=== PATIENT | female | born 1960 | race Caucasian/White ===

== ENCOUNTER → 2016-11-14 | Outpatient (CLI) | payer MEDICARE, OTHER ==
--- NOTE | 2016-11-14 16:32 | BD ---
EXAMINATION TYPE: MG DEXA axial skeleton. DATE OF EXAM: 11/14/2016 COMPARISON: NONE CLINICAL HISTORY: Height: 5 FT 1/4 IN Weight: 200 FRAX RISK QUESTIONS: Alcohol (3 or more units per day): NO Family History (Parent hip fracture): NO Glucocorticoids (More than 3mos): NO (Ex: prednisone, prednisolone, methylprednisolone, dexamethasone, and hydrocortisone). History of Fracture in Adulthood: YES Secondary Osteoporosis: 1. Type 1 Diabetes: NO 2. Hyperthyroidism: NO 3. Menopause before 45: NO 4. Malnutrition: NO 5. Chronic liver disease: NO Rheumatoid Arthritis: YES Current Tobacco Use: NO RISK FACTORS HISTORY OF: History of Wrist Fracture: UNSURE WHICH ONE When: Active: YES Postmenopausal woman: AGE 50 MEDICATIONS: Additional Medications: BLOOD PRESSURE, CHOLESTEROL, RESTLESS LEG SYNDROME MEDS, OMEPRAZOLE, NORCO, M OTRIN Additional History: EXAM MEASUREMENTS: Bone mineral densitometry was performed using the [employer] System. Bone mineral density as measured about the Lumbar spine is: ----- L1-L4(G/cm2): 0.902 T Score Values are as follows: ----- L2: -2.6 ----- L3: -2.1 ----- L4: -2.8 ----- L1-L4: -2.3 BASELINE Bone mineral density about the R hip (g/cm2): 0.828 Bone mineral density about the L hip (g/cm2): 0.786 T Score values are as follows: -----R Neck: -1.8 -----L Neck: -1.5 -----R Total: -1.4 -----L Total: -0.6 BASELINE IMPRESSION: OSTEOPOROSIS NOTE: T-SCORE=SD OF THE YOUNG ADULT MEAN.
--- NOTE | 2016-11-15 14:28 | MM ---
Reason for exam: screening (asymptomatic). Last mammogram was performed 1 year and 1 month ago. History: Patient is postmenopausal and is nulliparous. Physical Findings: A clinical breast exam by your physician is recommended on an annual basis and results should be correlated with mammographic findings. MG Screening Mammo w CAD Bilateral CC and MLO view(s) were taken. Prior study comparison: October 29, 2015, mammogram, performed at [facility]. December 18, 2013, mammogram, performed at [facility]. The breast tissue is almost entirely fat. There is no discrete abnormality. No significant changes when compared with prior studies. ASSESSMENT: Negative, BI-RAD 1 RECOMMENDATION: Routine screening mammogram of both breasts in 1 year.
== END | disposition home or self-care (01) ==
LOC: RADMAMWWP 14:46
PROVIDERS: ATTEND Family Medicine
DX: Z12.31 Encounter for screening mammogram for malignant neoplasm of breast (principal); M81.0 Age-related osteoporosis without current pathological fracture; Z78.0 Asymptomatic menopausal state
CPT/HCPCS: 77080; G0202

== ENCOUNTER → 2016-12-07 | Outpatient (CLI) | payer MEDICARE, OTHER ==
--- NOTE | 2016-12-07 15:50 | CT ---
EXAMINATION TYPE: CT abdomen pelvis w con DATE OF EXAM: 12/07/2016 COMPARISON: Prior CT abdomen pelvis 06/24/2014 HISTORY: incisional hernia CT DLP: 1768.1 mGycm Automated exposure control for dose reduction was used. TECHNIQUE: Helical acquisition of images from the lung bases through the pelvis have been completed. CONTRAST: Performed with Oral Contrast and with IV Contrast, patient injected with 100 mL of Omnipaque 300. FINDINGS: Anterior abdominal wall shows hernia contains fat stranding into the supraumbilical locatio n, the mouth of the hernia measures approximately 18 mm x 15 mm, there is fat within the hernia exten ding into the subcutaneous level. LUNG BASES: No significant abnormality is appreciated. AORTA: Atheromatous changes are present without aneurysm. LIVER/GB: Liver shows low attenuation likely due to hepatic steatosis, but liver is enlarged and the gallbladder is normal. PANCREAS: No significant abnormality is seen. SPLEEN: No significant abnormality is seen. ADRENALS: No significant abnormality is seen. KIDNEYS: No significant abnormality is seen. REPRODUCTIVE ORGANS: No significant abnormality is seen BOWEL: Diverticular changes associated with the sigmoid colon. There is no bowel obstruction. The ap pendix is normal. FREE AIR: No Free Air visible. ASCITES: None visible. PELVIC ADENOPATHY: None visualized. RETROPERITONEAL ADENOPATHY: No Retroperitoneal Adenopathy visible. URINARY BLADDER: No significant abnormality is seen. OSSEOUS STRUCTURES: No significant abnormality is seen. IMPRESSION: ANTERIOR ABDOMINAL WALL HERNIA CONTAINS FAT. HEPATOMEGALY, PROBABLE HEPATIC STEATOSIS. DIVERTICULOSIS .
== END | disposition home or self-care (01) ==
LOC: RADCTMAIN 13:34
PROVIDERS: ATTEND Surgery
DX: K43.9 Ventral hernia without obstruction or gangrene (principal); K57.30 Diverticulosis of large intestine without perforation or abscess without bleeding; R16.0 Hepatomegaly, not elsewhere classified
CPT/HCPCS: 74177; Q9967

== ENCOUNTER → 2016-12-19 | Outpatient (CLI) | payer MEDICARE, OTHER | END | disposition home or self-care (01) | LOC: LABPAT 13:00 | PROVIDERS: ATTEND Surgery | DX: Z01.812 Encounter for preprocedural laboratory examination (principal) | CPT/HCPCS: 86850; 86900; 86901 ==

== ENCOUNTER → 2017-02-08 | Outpatient (CLI) | payer MEDICARE, OTHER | END | disposition home or self-care (01) | LOC: LABWHC1 08:15 | PROVIDERS: ATTEND Surgery | DX: Z01.812 Encounter for preprocedural laboratory examination (principal) | CPT/HCPCS: 86850; 86900; 86901 ==

== ENCOUNTER 2017-02-14 08:21 | Day surgery (SDC) | payer MEDICARE, OTHER ==
[2017-02-07 15:14] VITALS: BMI 35.2
[~2017-02-14 08:21] MED LIST: DEXAMETHASONE SOD PHOSPHATE 10 MG/ML 1 ML VIAL IV ONE; HYDROmorphone 0.5 MG/0.5 ML SYRINGE IVP PRN; LACTATED RINGERS 1,000 ML IV SCH; MIDAZOLAM 2 MG/2 ML VIAL IV PRN; ONDANSETRON 4 MG/2 ML VIAL IVP ONE; ceFAZolin 2 GM in SODIUM CHLORIDE 0.9% 100 ML IVPB ONE
[2017-02-14] MEDS ORDERED: LIDOCAINE 1% 20 ML VIAL (10MG/ML) FOR IV START INTRADERMA ONE (09:18)
[2017-02-14] MEDS ORDERED: LACTATED RINGERS 1,000 ML IV ONE ×2 (09:20→12:30)
[2017-02-14] MEDS ORDERED: HEPARIN SODIUM,PORCINE 5,000 UNIT/ML 1 ML VIAL SQ ONE (09:47)
[2017-02-14] MEDS ORDERED: ROCURONIUM BROMIDE 10 MG/ML 10 ML VIAL IV ONE (11:16)
[2017-02-14] MEDS ORDERED: GLYCOPYRROLATE 0.2 MG/ML 2 ML VIAL ONE (11:16)
[2017-02-14] MEDS ORDERED: NEOSTIGMINE 1 MG/ML 10 ML VIAL ONE (11:16)
[2017-02-14] MEDS ORDERED: MIDAZOLAM 2 MG/2 ML VIAL ONE (11:16)
[2017-02-14] MEDS ORDERED: SUCCINYLCHOLINE CHLORIDE 100 MG/5 ML SYR IV ONE (11:16)
[2017-02-14] MEDS ORDERED: HYDROmorphone (PF) 1 MG/ML ONE (11:16)
[2017-02-14] MEDS ORDERED: PROPOFOL 10 MG/ML 20 ML VIAL IV ONE (11:16)
[2017-02-14] MEDS ORDERED: LIDOCAINE 1% INJ 10MG/ML (20 ML MDV) ONE (11:16)
[2017-02-14] MEDS ORDERED: fentaNYL (PF) 50 MCG/ML 2 ML AMP ONE (11:16)
[2017-02-14] MEDS ORDERED: BUPIVACAINE-EPI 0.5%-1:200,000 10 ML VIAL SQ ONE (11:40)
--- NOTE | 2017-02-14 13:28 | P.OP ---
Date of Procedure: 02/14/17 Preoperative Diagnosis: Recurrent incisional hernia Postoperative Diagnosis: Incarcerated recurrent incisional hernia containing omentum and preperitoneal fat Procedure(s) Performed: Robot-assisted laparoscopic repair of recurrent incisional hernia with mesh Implants: 11.4 cm circular ventralleX mesh with echo positioning system Anesthesia: ADELAA Surgeon: Mary Gutierrez Estimated Blood Loss (ml): 15 Pathology: other Condition: stable Description of Procedure: Informed consent was obtained and the patient prior to the operation. Patient identified in the preoperative holding area taken the operating room placed in supine position given general anesthesia with endotracheal intubation. The patient's right arm was tucked and left extended. After appropriately positioning the patient the patient was prepped and draped in the usual sterile surgical fashion. Appropriate timeout was called. Patient received 2 g of Ancef for skin prophylaxis and 5000 units of subcu heparin for thromboprophylaxis preoperatively. SCDs were placed as well as a folery catheter due to previous history of lower midline surgery. Left upper quadrant with a identified and infiltrated with lidocaine small incision was made with the help of 11 blade and then a Veress needle was introduced position of which was checked with the help of the drop test. The abdomen was then insufflated to 15 mmHg. Once that was done, 12 mm port was placed in the left upper quadrant and 2 8 mm ports were placed in the left upper quadrant and left lower quadrant respectively. At this time for laparoscopic scope was removed and the robot was docked with the 12 mm camera and the prograsp in the left hand and scissors in the right hand were taken.. The hernia was identified and measured to be approximately 2.5 cm fascial defect . The hernia itself contained significant amount of the omentum which was all reduced. On the inferior margin there was old stitches from the previous hernia repair. No obvious mesh was identified but the fascia was significantly thickened. All of that was completely excised cleaning up the margins and exposing the fascial margins cleanly. After that the fascial defect was closed with a running 0V lock suture. Once that was done and the needle was removed a 11.4 cm circular ventral like ST with echo positioning system was introduced . The Madan Talavera was then introduced and the mesh was elevated up to the abdominal wall into its position over the fascial defect that had previously been closed with good overlap. Running 2 0V lock suture was used to stitch the mesh to the abdominal wall. Once that was done both needles were removed. The mesh was flat well in placed with good overlap. There is no bleeding. At this time the procedure was terminated. The robot was undocked and its instruments removed. Using the laparoscope the 12 mm port site was closed with a Madan Talavera and 0 Vicryl. The ports were removed abdomen was desufflated and the skin was closed with the help of 4-0 Monocryl. Dermabond was applied. The patient tolerated the procedure well there were no complications patient was taken to recovery room in stable condition after extubationd after removal of the Suarez catheter.
[2017-02-14 13:49] VITALS: TEMP 97.4
[2017-02-14 15:17] VITALS: RESP 18
[2017-02-14] MEDS ORDERED: HYDROcodone/APAP 10-325MG 1 EACH TAB PO ONE (15:53)
[2017-02-14 15:56] VITALS: BP 129/72; PULSE 99
== END 2017-02-14 17:01 | disposition home or self-care (01) ==
LOC: OR 08:21
PROVIDERS: ATTEND Surgery
DX: K43.0 Incisional hernia with obstruction, without gangrene (principal); I10 Essential (primary) hypertension; E78.5 Hyperlipidemia, unspecified; Z79.899 Other long term (current) drug therapy; G47.33 Obstructive sleep apnea (adult) (pediatric); Z99.89 Dependence on other enabling machines and devices; F41.9 Anxiety disorder, unspecified; K21.9 Gastro-esophageal reflux disease without esophagitis
CPT/HCPCS: 49657; 86900; 86901; 88305; 86850; 36415; C1781; J2250; J1644; J1100; J2710; J0690; J2405; J2001; J3010; J1170 ×2; J0330; J2704

== ENCOUNTER → 2017-11-08 | Outpatient (CLI) | payer MEDICARE, OTHER ==
--- NOTE | 2017-11-08 09:44 | US ---
EXAMINATION TYPE: US abdomen complete DATE OF EXAM: 11/08/2017 COMPARISON: NONE CLINICAL HISTORY: 56-year-old female R74.8 Abnormal levels serum enzymes. Abnormal liver enzymes TECHNIQUE: Multiple sonographic images of the abdomen are obtained. FINDINGS: TRACTOR EXPERT NOTES: Difficult and suboptimal study due to patient body habitus EXAM MEASUREMENTS: Liver Length: 18.2 cm Gallbladder Wall: 0.2 cm CBD: 0.4 cm Spleen: 9.8 cm Right Kidney: 10.3 x 5.0 x 4.7 cm Left Kidney: 10.0 x 5.6 x 5.9 cm Pancreas: obscured by overlying midline bowel gas Liver: enlarged, increased attenuation, attenuating and heterogeneous appearance. The secondary limi ts assessment for focal lesion. Gallbladder: wnl Evidence for sonographic Chávez's sign: no CBD: wnl Spleen: wnl Right Kidney: No hydronephrosis Left Kidney: No hydronephrosis Upper IVC: wnl Abd Aorta: wnl IMPRESSION: Mild hepatomegaly (18.2 cm) with moderate to severe hepatic steatosis. Correlate with LFTs, lipid pro file, and patient risk factors.
== END | disposition home or self-care (01) ==
LOC: RADUSWWP 07:34
PROVIDERS: ATTEND Family Medicine
DX: K76.0 Fatty (change of) liver, not elsewhere classified (principal); R16.0 Hepatomegaly, not elsewhere classified
CPT/HCPCS: 76700

== ENCOUNTER → 2017-11-24 | Outpatient (CLI) | payer MEDICARE, OTHER ==
--- NOTE | 2017-11-29 11:21 | MM ---
Reason for exam: screening (asymptomatic). Last mammogram was performed 1 year ago. History: Patient is postmenopausal and is nulliparous. Physical Findings: A clinical breast exam by your physician is recommended on an annual basis and results should be correlated with mammographic findings. MG 3D Screening Mammo W/Cad Bilateral CC and MLO view(s) were taken. Prior study comparison: November 14, 2016, bilateral MG screening mammo w CAD. October 29, 2015, mammogram, performed at [facility]. There are scattered fibroglandular densities. No suspicious abnormality. No significant changes when compared with prior studies. ASSESSMENT: Negative, BI-RAD 1 RECOMMENDATION: Routine screening mammogram of both breasts in 1 year.
== END | disposition home or self-care (01) ==
LOC: RADMAMWWP 12:27
PROVIDERS: ATTEND Obstetrics & Gynecology
DX: Z12.31 Encounter for screening mammogram for malignant neoplasm of breast (principal)
CPT/HCPCS: 77063; 77067

== ENCOUNTER → 2018-01-15 | Outpatient (CLI) | payer MEDICARE, OTHER ==
[2018-01-15 20:05] LABS: ALT 111 U/L (9-52); AST 81 U/L (14-36); Albumin 4.2 g/dL (3.5-5.0); Alkaline Phosphatase 168 U/L (38-126); Anion Gap 14 mmol/L; Blood Urea Nitrogen 17 mg/dL (7-17); Calcium 9.5 mg/dL (8.4-10.2); Carbon Dioxide 22 mmol/L (22-30); Chloride 105 mmol/L (98-107); Glucose 102 mg/dL (74-99); Potassium 4.2 mmol/L (3.5-5.1); Sodium 141 mmol/L (137-145); Total Bilirubin 0.2 mg/dL (0.2-1.3)
[2018-01-16 09:11] LABS: Iron Saturation 14.19 (12.00-45.00)
[2018-01-16 10:25] LABS: Ceruloplasmin 24.1 mg/dL (20.0-60.0)
== END | disposition home or self-care (01) ==
LOC: LAB 17:37
PROVIDERS: ATTEND Internal Medicine Gastroenterology
DX: R94.5 Abnormal results of liver function studies (principal)
CPT/HCPCS: 80053; 82103; 82172; 82247; 82390; 82728; 82977; 83010; 83516; 83540; 83550; 83883; 84460; 86038; 87340

== ENCOUNTER → 2018-01-31 | Outpatient (CLI) | payer MEDICARE, OTHER ==
[2018-01-31 14:28] LABS: Basophils # (A) 0.1 k/uL (0-0.2); Basophils % (A) 1 %; Eosinophils # (A) 0.2 k/uL (0-0.7); Eosinophils % (A) 3 %; HCT 41.2 % (34.0-46.0); HGB 13.8 gm/dL (11.4-16.0); Lymphocytes # (A) 2.7 k/uL (1.0-4.8); Lymphocytes % (A) 36 %; MCH 31.8 pg (25.0-35.0); MCHC 33.5 g/dL (31.0-37.0); Mean Platelet Volume 8.6; Monocytes # (A) 0.4 k/uL (0-1.0); Monocytes % (A) 5 %; Neutrophils # (A) 3.9 k/uL (1.3-7.7); Neutrophils % (A) 53 %; Platelet Count 191 k/uL (150-450); RBC 4.34 m/uL (3.80-5.40); RDW 12.4 % (11.5-15.5); WBC 7.4 k/uL (3.8-10.6)
[2018-01-31 14:48] LABS: ALT 96 U/L (9-52); AST 88 U/L (14-36); Albumin 4.1 g/dL (3.5-5.0); Alkaline Phosphatase 109 U/L (38-126); Anion Gap 8 mmol/L; Blood Urea Nitrogen 12 mg/dL (7-17); Calcium 9.9 mg/dL (8.4-10.2); Carbon Dioxide 27 mmol/L (22-30); Chloride 103 mmol/L (98-107); Cholesterol 174 mg/dL (<200); Glucose 100 mg/dL (74-99); HDL Cholesterol 53 mg/dL (40-60); LDL Cholesterol,Calculated 83 mg/dL (0-99); Potassium 4.6 mmol/L (3.5-5.1); Sodium 138 mmol/L (137-145); Total Bilirubin 0.6 mg/dL (0.2-1.3); Total Protein 6.9 g/dL (6.3-8.2); Triglycerides 190 mg/dL (<150)
[2018-01-31 18:42] LABS: Folate, Serum 14.3 ng/mL
[2018-01-31 22:48] LABS: Hemoglobin A1C 7.2 % (4.0-6.0)
== END | disposition home or self-care (01) ==
LOC: LABWHC1 12:27
PROVIDERS: ATTEND Family Medicine
DX: E78.2 Mixed hyperlipidemia (principal); R74.8 Abnormal levels of other serum enzymes; I10 Essential (primary) hypertension; E55.9 Vitamin D deficiency, unspecified; E11.65 Type 2 diabetes mellitus with hyperglycemia
CPT/HCPCS: 36415; 80053; 80061; 82607; 82652; 82746; 83036; 85025

== ENCOUNTER → 2018-04-25 | Outpatient (CLI) | payer MEDICARE, OTHER ==
[2018-04-25 18:25] LABS: Albumin 4.4 g/dL (3.80-4.90); Anion Gap 8.7 mmol/L (4.00-12.00); Calcium 9.2 mg/dL (8.7-10.3); Carbon Dioxide 28.3 mmol/L (21.6-31.8); Globulin 2.2 g/dL (1.6-3.3); Potassium 4.3 mmol/L (3.5-5.5); Total Bilirubin 0.5 mg/dL (0.2-1.2); Total Protein 6.6 g/dL (6.2-8.2)
== END ==
LOC: LABWHC1 11:22
PROVIDERS: ATTEND Internal Medicine Gastroenterology
DX: K76.0 Fatty (change of) liver, not elsewhere classified (principal)
CPT/HCPCS: 36415; 80053

== ENCOUNTER → 2018-07-02 | Outpatient (CLI) | payer MEDICARE, OTHER ==
[2018-07-02 20:28] LABS: Albumin 4.5 g/dL (3.80-4.90); Albumin/Globulin Ratio 2.05 (1.60-3.17); Anion Gap 9.4 mmol/L (4.00-12.00); Calcium 9.6 mg/dL (8.7-10.3); Carbon Dioxide 23.6 mmol/L (21.6-31.8); Globulin 2.2 g/dL (1.6-3.3); Potassium 4.2 mmol/L (3.5-5.5); Total Bilirubin 0.3 mg/dL (0.3-1.2); Total Protein 6.7 g/dL (6.2-8.2)
== END | disposition home or self-care (01) ==
LOC: LABWHC1 13:41
PROVIDERS: ATTEND Internal Medicine Gastroenterology
DX: K76.0 Fatty (change of) liver, not elsewhere classified (principal)
CPT/HCPCS: 36415; 80053

== ENCOUNTER → 2018-07-02 | Outpatient (CLI) | payer MEDICARE, OTHER ==
--- NOTE | 2018-07-03 17:20 | BD ---
EXAMINATION TYPE: Axial Bone Density DATE OF EXAM: 07/02/2018 COMPARISON: NONE CLINICAL HISTORY: 57-year-old female osteoporosis Height: 5 FT Weight: 199 FRAX RISK QUESTIONS: History of Fracture in Adulthood: YES Secondary Osteoporosis: Rheumatoid Arthritis: YES RISK FACTORS HISTORY OF: History of Wrist Fracture: LT WRIST When: APROX AGE 23 Active: YES Postmenopausal woman: BETWEEN AGE 45-50 MEDICATIONS: Additional Medications: METFORMIN, BLOOD PRESSURE, CHOLESTEROL, OMEPRAZOLE, RESTLESS LEG SYNDROME MED S Additional History: EXAM MEASUREMENTS: Bone mineral densitometry was performed using the [employer] System. Bone mineral density as measured about the Lumbar spine is: ----- L1-L4(G/cm2): 0.946 T Score Values are as follows: ----- L2: -2.8 ----- L3: -1.1 ----- L4: -2.0 ----- L1-L4: -1.9 Bone mineral density has: INCREASED 7.7 % since study of: 2016 Bone mineral density about the R hip (g/cm2): 0.842 Bone mineral density about the L hip (g/cm2): 0.862 T Score values are as follows: -----R Neck: -1.4 -----L Neck: -1.3 -----R Total: -0.7 -----L Total: -0.4 Bone mineral density has: INCREASED 5.9 % since study of: 2017 IMPRESSION: Osteopenia (T Score between -2.5 and -1). There is slightly increased risk of fracture and the patient may be considered for treatment. Re-Screen 2-5 years. NOTE: T-SCORE=SD OF THE YOUNG ADULT MEAN.
== END | disposition home or self-care (01) ==
LOC: RADBDWWP 15:23
PROVIDERS: ATTEND Family Medicine
DX: M85.80 Other specified disorders of bone density and structure, unspecified site (principal)
CPT/HCPCS: 77080

== ENCOUNTER → 2019-05-13 | Outpatient (CLI) | payer MEDICARE, OTHER ==
[2019-05-13 22:03] LABS: African American GFR (CKD) 114.8 (60.0-200.0); Albumin 4.4 g/dL (3.80-4.90); Albumin/Globulin Ratio 2.1 (1.60-3.17); Anion Gap 10.2 mmol/L (4.00-12.00); BUN/Creat Ratio 18.33 Ratio (12.00-20.00); Calcium 9.8 mg/dL (8.7-10.3); Carbon Dioxide 26.8 mmol/L (21.6-31.8); Globulin 2.1 g/dL (1.6-3.3); Non-African American GFR(CKD) 99.1 (60.0-200.0); Potassium 4.6 mmol/L (3.5-5.5); Total Bilirubin 0.4 mg/dL (0.2-1.2); Total Protein 6.5 g/dL (6.2-8.2)
== END | disposition home or self-care (01) ==
LOC: LABWHC1 14:17
PROVIDERS: ATTEND Internal Medicine Gastroenterology
DX: K76.0 Fatty (change of) liver, not elsewhere classified (principal)
CPT/HCPCS: 36415; 80053

== ENCOUNTER → 2019-10-15 | Outpatient (CLI) | payer MEDICARE, OTHER ==
[2019-10-15 19:32] LABS: African American GFR (CKD) 109.1 (60.0-200.0); Albumin 4.5 g/dL (3.80-4.90); Albumin/Globulin Ratio 2.14 (1.60-3.17); Anion Gap 10.4 mmol/L (4.00-12.00); BUN/Creat Ratio 15.71 Ratio (12.00-20.00); Calcium 9.1 mg/dL (8.7-10.3); Carbon Dioxide 24.6 mmol/L (21.6-31.8); Globulin 2.1 g/dL (1.6-3.3); Non-African American GFR(CKD) 94.2 (60.0-200.0); Potassium 4.5 mmol/L (3.5-5.5); Total Bilirubin 0.7 mg/dL (0.3-1.2); Total Protein 6.6 g/dL (6.2-8.2)
== END | disposition home or self-care (01) ==
LOC: LABWHC1 13:16
PROVIDERS: ATTEND Internal Medicine Gastroenterology
DX: K76.0 Fatty (change of) liver, not elsewhere classified (principal)
CPT/HCPCS: 36415; 80053

== ENCOUNTER → 2019-10-15 | Outpatient (CLI) | payer MEDICARE, OTHER | END | disposition home or self-care (01) | LOC: LABPAT 13:10 | PROVIDERS: ATTEND Surgery | DX: Z01.818 Encounter for other preprocedural examination (principal); K43.2 Incisional hernia without obstruction or gangrene | CPT/HCPCS: 36415; 80053; 93005 ==

== ENCOUNTER 2020-01-13 10:51 | Observation (INO) | payer MEDICARE, OTHER ==
[2020-01-09 10:20] VITALS: BMI 37.0
[~2020-01-13 10:51] MED LIST changes: +ACETAMINOPHEN TAB 500 MG TAB PO ONE; +HEPARIN SODIUM,PORCINE 5,000 UNIT/ML 1 ML VIAL SQ ONE; -HYDROmorphone 0.5 MG/0.5 ML SYRINGE IVP PRN; -LACTATED RINGERS 1,000 ML IV SCH; -MIDAZOLAM 2 MG/2 ML VIAL IV PRN; -ceFAZolin 2 GM in SODIUM CHLORIDE 0.9% 100 ML IVPB ONE
[2020-01-13 11:38] LABS: Glucose,Whole Blood 114 mg/dL (75-99)
[2020-01-13] MEDS: LACTATED RINGERS 1,000 ML IV SCH (11:39)
[2020-01-13] MEDS ORDERED: LIDOCAINE 1% (10MG/ML) FOR IV START INTRADERMA ONE (11:40)
[2020-01-13 11:44] LABS: HGB 12.8 gm/dL (11.4-16.0); MCH 31.2 pg (25.0-35.0); MCHC 32.8 g/dL (31.0-37.0); Mean Platelet Volume 9.2; Platelet Count 186 k/uL (150-450); RBC 4.11 m/uL (3.80-5.40); RDW 12.7 % (11.5-15.5); WBC 6.6 k/uL (3.8-10.6)
[2020-01-13 11:51] LABS: African American GFR (CKD) >90 (>60 ml/min/1.73 sqM); Anion Gap 5 mmol/L; Blood Urea Nitrogen 13 mg/dL (7-17); Calcium 8.7 mg/dL (8.4-10.2); Carbon Dioxide 25 mmol/L (22-30); Chloride 108 mmol/L (98-107); Glucose 120 mg/dL (74-99); Non-African American GFR(CKD) >90 (>60 ml/min/1.73 sqM); Potassium 4.2 mmol/L (3.5-5.1); Sodium 138 mmol/L (137-145)
--- NOTE | 2020-01-13 13:40 | P.GSHP ---
History of Present Illness H&P Date: 01/13/20 Chief Complaint: Recurrent incarcerated incisional hernia 58-year-old female complains of recurrent hernia. Patient had her hernia fixed at the umbilicus initially 15 years ago. Does not believe mesh was used at that time. Dr. Gutierrez laparoscopically repaired a recurrent hernia with an 11.4 cm circular mesh robotically several years ago. Approximately one year ago patient began experiencing an increasing bulge in present at and just above the umbilicus. Mild pain. No nausea or vomiting. No change in bowel habits. Past Medical History Past Medical History: Diabetes Mellitus, GERD/Reflux, Hyperlipidemia, Hypertension, Sleep Apnea/CPAP/BIPAP Additional Past Medical History / Comment(s): hx plantar fasciitis, overactive bladder, History of Any Multi-Drug Resistant Organisms: None Reported Past Surgical History: Hernia Repair, Orthopedic Surgery, Tubal Ligation Additional Past Surgical History / Comment(s): rt knee arthroscopy, kathryn carpal tunnel, kathryn plantar fasciitis surgery Past Anesthesia/Blood Transfusion Reactions: Postoperative Nausea & Vomiting (PONV) Smoking Status: Former smoker - Past Family History Mother Family Medical History: CVA/TIA, Deep Vein Thrombosis (DVT) Brother(s) Family Medical History: CVA/TIA, Hypertension Father Family Medical History: Hypertension Medications and Allergies Home Medications Medication Instructions Recorded Confirmed Type Omeprazole [PriLOSEC] 20 mg PO DAILY 04/07/14 01/13/20 History Simvastatin [Zocor] 40 mg PO HS 04/07/14 01/13/20 History lisinopriL [Zestril] 5 mg PO DAILY 04/07/14 01/13/20 History Alendronate Sodium [Fosamax] 70 mg PO MO 11/05/19 01/13/20 History Aspirin [Adult Low Dose Aspirin EC] 81 mg PO DAILY 11/05/19 01/13/20 History Calcium Carbonate [Calcium] 600 mg PO DAILY 11/05/19 01/13/20 History Ergocalciferol [Vitamin D2] 50,000 unit PO Q14D 11/05/19 01/13/20 History Oxybutynin Chloride [Ditropan] 5 mg PO TID 11/05/19 01/13/20 History metFORMIN HCL [Glucophage] 1,000 mg PO BID 07/07/20 09/14/20 History Insulin Glargine,Hum.rec.anlog 20 unit SQ HS 01/09/20 01/13/20 History [Lantus Solostar] Pioglitazone [Actos] 15 mg PO DAILY 01/09/20 01/13/20 History rOPINIRole HCL [Requip] 0.5 mg PO HS 01/09/20 01/13/20 History Allergies Allergy/AdvReac Type Severity Reaction Status Date / Time No Known Allergies Allergy Verified 01/13/20 11:19 Surgical - Exam Vital Signs Temp Pulse Resp BP Pulse Ox 97.9 F 71 16 109/64 97 01/13/20 11:38 01/13/20 11:38 01/13/20 11:38 01/13/20 11:38 01/13/20 11:38 Physical exam: General: Well-developed, well-nourished HEENT: Normocephalic, sclerae nonicteric Abdomen: Nontender, nondistended, incarcerated hernia present at and above the umbilicus, fascial defect difficult to palpate Extremities: No edema Neuro: Alert and oriented Results - Labs 01/13/20 11:33 01/13/20 11:33 Abnormal Lab Results - Last 24 Hours (Table) 01/13/20 01/13/20 Range/Units 11:33 11:35 Chloride 108 H (98-107) mmol/L Glucose 120 H (74-99) mg/dL POC Glucose (mg/dL) 114 H (75-99) mg/dL Diabetes panel 01/13/20 Range/Units 11:33 Sodium 138 (137-145) mmol/L Potassium 4.2 (3.5-5.1) mmol/L Chloride 108 H (98-107) mmol/L Carbon Dioxide 25 (22-30) mmol/L BUN 13 (7-17) mg/dL Creatinine 0.54 (0.52-1.04) mg/dL Glucose 120 H (74-99) mg/dL Calcium 8.7 (8.4-10.2) mg/dL Calcium panel 01/13/20 Range/Units 11:33 Calcium 8.7 (8.4-10.2) mg/dL Pituitary panel 01/13/20 Range/Units 11:33 Sodium 138 (137-145) mmol/L Potassium 4.2 (3.5-5.1) mmol/L Chloride 108 H (98-107) mmol/L Carbon Dioxide 25 (22-30) mmol/L BUN 13 (7-17) mg/dL Creatinine 0.54 (0.52-1.04) mg/dL Glucose 120 H (74-99) mg/dL Calcium 8.7 (8.4-10.2) mg/dL Adrenal panel 01/13/20 Range/Units 11:33 Sodium 138 (137-145) mmol/L Potassium 4.2 (3.5-5.1) mmol/L Chloride 108 H (98-107) mmol/L Carbon Dioxide 25 (22-30) mmol/L BUN 13 (7-17) mg/dL Creatinine 0.54 (0.52-1.04) mg/dL Glucose 120 H (74-99) mg/dL Calcium 8.7 (8.4-10.2) mg/dL Assessment and Plan (1) Recurrent incisional hernia with incarceration Narrative/Plan: Will proceed with repair recurrent incarcerated incisional hernia with mesh at this time. Risks of bleeding, infection, recurrence, bladder and bowel injury, numbness, nerve injury were discussed with the patient. The patient understands and wishes to proceed. Current Visit: Yes Status: Acute Code(s): K43.0 - INCISIONAL HERNIA WITH OBSTRUCTION, WITHOUT GANGRENE SNOMED Code(s): 630836931
[2020-01-13] MEDS ORDERED: fentaNYL (PF) 50 MCG/ML 2 ML AMP ONE (13:45)
[2020-01-13] MEDS ORDERED: PROPOFOL 10 MG/ML 20 ML VIAL IV ONE (13:45)
[2020-01-13] MEDS ORDERED: NEOSTIGMINE 1 MG/ML 10 ML VIAL ONE (13:45)
[2020-01-13] MEDS ORDERED: GLYCOPYRROLATE 0.2 MG/ML 2 ML VIAL ONE (13:45)
[2020-01-13] MEDS ORDERED: LIDOCAINE 1% INJ 10MG/ML (20 ML MDV) ONE (13:45)
[2020-01-13] MEDS ORDERED: HYDROmorphone (PF) 1 MG/ML ONE (13:45)
[2020-01-13] MEDS ORDERED: ROCURONIUM BROMIDE 10 MG/ML 5 ML VIAL IV ONE (13:45)
[2020-01-13] MEDS ORDERED: PHENYLEPHRINE-0.9% NACL SYG 1 MG/10 ML SYRINGE ONE (13:45)
[2020-01-13] MEDS ORDERED: MIDAZOLAM 2 MG/2 ML VIAL ONE (13:45)
[2020-01-13] MEDS ORDERED: SUCCINYLCHOLINE CHLORIDE 100 MG/5 ML SYR IV ONE (13:45)
[2020-01-13] MEDS ORDERED: LACTATED RINGERS 1,000 ML IV ONE (15:10)
[2020-01-13] MEDS ORDERED: NALOXONE 0.4 MG/ML 1 ML VIAL IV PRN (15:40)
[2020-01-13] MEDS: HYDROmorphone 0.5 MG/0.5 ML SYRINGE IVP PRN ×5 (15:55→17:25)
[2020-01-13] MEDS ORDERED: diphenhydrAMINE 50 MG/ML 1 ML VIAL IVP ONE (15:58)
--- NOTE | 2020-01-13 15:59 | P.OP ---
Date of Procedure: 01/13/20 Postoperative Diagnosis: PREOPERATIVE DIAGNOSIS: Incarcerated recurrent incisional hernia POSTOPERATIVE DIAGNOSIS: Same PROCEDURE: Repair recurrent incarcerated incisional hernia with mesh SURGEON: Saul EBL: 20 mL ANESTHESIA: Gen. COMPLICATIONS: None OPERATIVE PROCEDURE: Patient placed on the operating table in the supine position. Abdomen was prepped and draped in usual sterile fashion. An incision was made extending from above the umbilicus down to the infraumbilical region through the previous scar site. Dissection through the subcutaneous tissues took place using electrocautery. A large hernia was identified. The hernia sac was carefully dissected down to the level of the fascia where it was excised. A portion of the patient's previously placed intraperitoneal mesh was making up a portion of the hernia sac. A portion of this mesh was excised when the hernia sac was removed. The patient had a single large defect that was oval in shape measuring 7 x 4 cm. The 8 x 10 cm ventral X mesh was placed beneath the fascia and sutured to the fascia using trans-fascial 0 Ethibond sutures. Following that the defect was closed horizontally using interrupted 0 Ethibond mattress sutures. The folding edge was tacked down using 0 Ethibond sutures as well. A drain was placed anterior to the fascial closure exiting through the left lower quadrant. This was sutured to the skin using a 3-0 silk stitch. The subcutaneous tissues were closed using 2-0 and 3-0 Vicryl sutures. The skin was closed using neha. Sterile dressings were applied. DISPOSITION: Stable to recovery room
[2020-01-13 16:07] LABS: Glucose,Whole Blood 180 mg/dL (75-99)
[2020-01-13] MEDS: FAMOTIDINE 20 MG TAB PO SCH (19:47)
[2020-01-13] MEDS: DOCUSATE 100 MG CAP PO SCH (19:48)
[2020-01-13] MEDS: HEPARIN SODIUM,PORCINE 5,000 UNIT/ML 1 ML VIAL SQ SCH (19:48)
[2020-01-13] MEDS: HYDROcodone/APAP 5-325MG 1 EACH TAB PO PRN (19:48)
[2020-01-13 20:13] LABS: Glucose,Whole Blood 175 mg/dL (75-99)
[2020-01-13] MEDS: ONDANSETRON 4 MG/2 ML VIAL IVP PRN (20:39)
[2020-01-13] MEDS: HYDROmorphone 1 MG/ML 1 ML SYRINGE IVP PRN (21:02)
[2020-01-13] MEDS: OXYBUTYNIN CHLORIDE 5 MG TAB PO SCH (21:20)
[2020-01-14] MEDS: HYDROmorphone 1 MG/ML 1 ML SYRINGE IVP PRN ×3 (03:19→12:32)
[2020-01-14] MEDS: HEPARIN SODIUM,PORCINE 5,000 UNIT/ML 1 ML VIAL SQ SCH ×4 (03:20→19:25)
[2020-01-14 04:46] LABS: Basophils % (A) 0 %; Eosinophils # (A) 0.1 k/uL (0-0.7); Eosinophils % (A) 1 %; HCT 38.7 % (34.0-46.0); HGB 12.2 gm/dL (11.4-16.0); Lymphocytes # (A) 1.9 k/uL (1.0-4.8); Lymphocytes % (A) 14 %; MCH 30.3 pg (25.0-35.0); MCHC 31.4 g/dL (31.0-37.0); MCV 96.5 fL (80.0-100.0); Mean Platelet Volume 9.1; Monocytes # (A) 0.6 k/uL (0-1.0); Monocytes % (A) 5 %; Neutrophils # (A) 11.3 k/uL (1.3-7.7); Neutrophils % (A) 80 %; Platelet Count 193 k/uL (150-450); RBC 4.02 m/uL (3.80-5.40); RDW 12.5 % (11.5-15.5); WBC 14.1 k/uL (3.8-10.6)
[2020-01-14 07:02] LABS: Glucose,Whole Blood 135 mg/dL (75-99)
[2020-01-14] MEDS: LACTATED RINGERS 1,000 ML IV SCH (07:59)
[2020-01-14] MEDS: ONDANSETRON 4 MG/2 ML VIAL IVP PRN ×2 (08:05→13:08)
[2020-01-14] MEDS: ASPIRIN 81 MG PO SCH (09:53)
[2020-01-14] MEDS: HYDROcodone/APAP 5-325MG 1 EACH TAB PO PRN (09:54)
[2020-01-14] MEDS: PIOGLITAZONE 15 MG TAB PO SCH (09:54)
[2020-01-14] MEDS: FAMOTIDINE 20 MG TAB PO SCH ×2 (09:54→21:12)
[2020-01-14] MEDS: lisinopriL 5 MG TAB PO SCH (09:54)
[2020-01-14] MEDS: metFORMIN 500 MG TAB PO SCH ×2 (09:54→21:12)
[2020-01-14] MEDS: DOCUSATE 100 MG CAP PO SCH ×2 (09:54→21:12)
[2020-01-14] MEDS: OXYBUTYNIN CHLORIDE 5 MG TAB PO SCH ×3 (09:54→22:04)
[2020-01-14 10:23] LABS: Anion Gap 9.6 mmol/L (4.00-12.00); Calcium 8.7 mg/dL (8.7-10.3); Carbon Dioxide 24.4 mmol/L (21.6-31.8); Non-African American GFR(CKD) 98.4 (60.0-200.0); Potassium 4.2 mmol/L (3.5-5.5)
[2020-01-14 11:12] LABS: Glucose,Whole Blood 157 mg/dL (75-99)
--- NOTE | 2020-01-14 12:21 | P.PN ---
<Alicia Seals - Last Filed: 01/14/20 12:16> Subjective Progress Note Date: 01/14/20 CHIEF COMPLAINT: Incarcerated recurrent incisional hernia HISTORY OF PRESENT ILLNESS: Patient is postop day #1 status post repair recu rrent incarcerated incisional hernia with mesh. She is reporting nausea and still having some abdominal pain. No vomiting. She denies any passing gas or bowel movement. She is afebrile. White count 14.1, she did receive a dose of Decadron. She's currently on a clear liquid diet. PHYSICAL EXAM: VITAL SIGNS: Reviewed. GENERAL: Well-developed in no acute distress. HEENT: No sclera icterus. Extraocular movements grossly intact. Moist buccal mucosa. Head is atraumatic, normocephalic. ABDOMEN: Soft. Dressing at incision site small amount of blood at the distal aspect of the bandage. No evidence of erythema. She is a drainage tube in place. NEUROLOGIC: Alert and oriented. Cranial nerves II through XII grossly intact. ASSESSMENT: 1. Repair of recurrent incarcerated incisional hernia with mesh. Postop day #1 PLAN: -Continue clear liquid diet -Continue the [place] and Dilaudid as needed for pain -Continue Zofran as needed for nausea -Encourage patient to ambulate and use incentive spirometer Physician Rn Hospice note has been reviewed by physician. Signing provider agrees with the documented findings, assessment, and plan of care. Objective - Vital Signs Vital signs: Vital Signs Temp 98.4 F 01/14/20 11:53 Pulse 80 01/14/20 11:53 Resp 16 01/14/20 11:53 BP 98/61 01/14/20 11:53 Pulse Ox 95 01/14/20 11:53 Intake & Output 01/13/20 01/14/20 01/14/20 18:59 06:59 18:59 Intake Total 2100 230 Output Total 20 30 Balance 2080 200 Weight 86.183 kg Intake: IV 2100 Intake, IV Titration 230 Amount Lactated Ringers 1,000 ml 230 @ 20 mls/hr IV .Q24H NATHALY Rx#:[id number] Output: Drainage 30 Anterior Abdomen 30 Estimated Blood Loss 20 Other: Voiding Method Toilet # Voids 1 - Labs CBC & Chem 7: 01/14/20 04:20 01/14/20 04:20 Labs: Abnormal Lab Results - Last 24 Hours (Table) 01/13/20 01/13/20 01/14/20 Range/Units 16:05 20:12 04:20 WBC 14.1 H (3.8-10.6) k/uL Neutrophils # 11.3 H (1.3-7.7) k/uL Glucose (70-110) mg/dL POC Glucose (mg/dL) 180 H 175 H (75-99) mg/dL 01/14/20 01/14/20 01/14/20 Range/Units 04:20 06:51 11:02 WBC (3.8-10.6) k/uL Neutrophils # (1.3-7.7) k/uL Glucose 130 H (70-110) mg/dL POC Glucose (mg/dL) 135 H 157 H (75-99) mg/dL <Dharmesh Hughes - Last Filed: 01/14/20 13:12> Subjective As above. Patient complaining of nausea and vomiting. Will add Toradol and IV Tylenol for pain control. Use narcotics only for breakthrough pain. Continue ambulation. Possible discharge tomorrow. Objective - Vital Signs Vital signs: Vital Signs Temp 98.4 F 01/14/20 11:53 Pulse 80 01/14/20 11:53 Resp 16 01/14/20 11:53 BP 98/61 01/14/20 11:53 Pulse Ox 95 01/14/20 11:53 Intake & Output 01/13/20 01/14/20 01/14/20 18:59 06:59 18:59 Intake Total 2100 230 Output Total 20 30 Balance 2080 200 Weight 86.183 kg Intake: IV 2100 Intake, IV Titration 230 Amount Lactated Ringers 1,000 ml 230 @ 20 mls/hr IV .Q24H NATHALY Rx#:[id number] Output: Drainage 30 Anterior Abdomen 30 Estimated Blood Loss 20 Other: Voiding Method Toilet # Voids 1 - Labs CBC & Chem 7: 01/14/20 04:20 01/14/20 04:20 Labs: Abnormal Lab Results - Last 24 Hours (Table) 01/13/20 01/13/20 01/14/20 Range/Units 16:05 20:12 04:20 WBC 14.1 H (3.8-10.6) k/uL Neutrophils # 11.3 H (1.3-7.7) k/uL Glucose (70-110) mg/dL POC Glucose (mg/dL) 180 H 175 H (75-99) mg/dL 01/14/20 01/14/20 01/14/20 Range/Units 04:20 06:51 11:02 WBC (3.8-10.6) k/uL Neutrophils # (1.3-7.7) k/uL Glucose 130 H (70-110) mg/dL POC Glucose (mg/dL) 135 H 157 H (75-99) mg/dL Assessment and Plan (1) Recurrent incisional hernia with incarceration Current Visit: Yes Status: Acute Code(s): K43.0 - INCISIONAL HERNIA WITH OBSTRUCTION, WITHOUT GANGRENE SNOMED Code(s): 048796469
[2020-01-14] MEDS: KETOROLAC 15 MG/ML 1 ML VIAL IVP SCH ×3 (14:18→23:55)
[2020-01-14] MEDS: ACETAMINOPHEN IV (For NPO) 1,000 MG in EMPTY BAG 1 BAG IVPB SCH ×3 (14:19→23:56)
--- NOTE | 2020-01-14 16:25 | CONS ---
CONSULTATION DATE OF SERVICE: 01/14/2020 REASON FOR CONSULTATION: Advice regarding diabetes, multiple medical abnormalities requested per Dr. Hguhes. HISTORY OF PRESENT ILLNESS: This is a 59-year-old woman with a past medical history of diabetes, GERD, hypertension, sleep apnea, hernia repair, being followed by Dr. Jacklyn Freitas in the outpatient setting underwent repair of recurrent incarcerated hernia with mesh by Dr. Hughes. The patient tolerated the procedure well. There is no history of fever, rigors or chills. There is no history of headache, loss of consciousness, seizures at this time. Blood sugar was found to be 135, 157 since surgery. PAST MEDICAL HISTORY: History of diabetes, GERD, hypertension, hyperlipidemia, sleep apnea, history of plantar fasciitis. MEDICATIONS: Prior to admission, home medications: Requip 0.5 mg q.h.s. Glucophage 1000 mg p.o. b.i.d., Zestril 5 mg p.o. daily, Zocor 40 mg q.h.s., Actos 50 mg p.o. daily, Ditropan 5 mg p.o. daily, Prilosec 20 mg daily, Lantus 10 units subcu q.h.s., vitamin D2 fifty thousand q.14 days, calcium 600 mg p.o. daily, aspirin 81 mg daily, Fosamax 70 mg p.o. Monday,. Oxy-IR 5 mg q.6 p.r.n. ALLERGIES: None. FAMILY HISTORY: History of CVA, TIA, DVT. SOCIAL HISTORY: Previous smoking, no history of current smoking or alcohol intake. REVIEW OF SYSTEMS: ENT: No diminished vision. Diminished hearing. CARDIOVASCULAR SYSTEM: No angina, palpitation. RESPIRATION: No cough. GI: As mentioned earlier. : No dysuria or hematuria. NERVOUS SYSTEM: No numbness or weakness. ALLERGY/IMMUNOLOGY: Negative. MUSCULOSKELETAL: As mentioned earlier. HEMATOLOGY: No history of anemia. ENDOCRINE: As mentioned earlier. CONSTITUTIONAL: As mentioned earlier. DERMATOLOGY: Negative. RHEUMATOLOGY: Negative. PSYCHIATRY: As mentioned earlier. PHYSICAL EXAM: Patient is alert and oriented x3. Pulse 91, blood pressure 111/74, respiration 20, temperature 98.8, pulse ox 100% on 2 L. HEENT: Conjunctivae normal. NECK: No jugular venous distention. No lymph node enlargement. CARDIOVASCULAR SYSTEM: S1, S2, muffled. RESPIRATION: Breath sounds diminished at the bases, a few scattered rhonchi, no crackles. ABDOMEN: Soft. Status post surgery. LEGS: No swelling, no edema. NERVOUS SYSTEM: Higher functions as mentioned. Moves all four limits, No focal motor- sensory. LYMPHATICS: No lymph node enlargement. SKIN: No rashes. JOINTS: No active arthropathy. LABS: WBC is 14.1, otherwise sodium 130, potassium 4.2. Other labs are noted. Accu-Cheks noted. ASSESSMENT: 1. Status post repair of recurrent incarcerated incisional hernia with mesh. 2. Increased WBC, possibly reactive. 3. Diabetes mellitus type 2. 4. GERD. 5. Hypertension. 6. Sleep apnea. 7. History of plantar fasciitis. 8. Overactive bladder. 9. History of hernia surgery. 10.History of degenerative joint disease. RECOMMENDATION: Recommend to continue current management and symptomatic treatment. I would hold off the insulin at this time. Otherwise, monitor Accu-Cheks a.c. and at bedtime and will continue to monitor. DVT prophylaxis. Incentive spirometry. Will follow the patient closely with you. Thank you Dr. Hughes for allowing me to participate in the care of this patient. Patient may be asked to follow up with Dr. Jacklyn Freitas after discharge. MMODL / IJN: [id number] /
[2020-01-14 17:03] LABS: Glucose,Whole Blood 149 mg/dL (75-99)
[2020-01-14 20:41] LABS: Glucose,Whole Blood 137 mg/dL (75-99)
[2020-01-14] MEDS ORDERED: ATORVASTATIN 20 MG TAB PO SCH (21:00)
[2020-01-14] MEDS ORDERED: INSULIN DETEMIR (LEVEMIR) 100 UNIT/ML SYR SQ SCH (21:00)
[2020-01-15] MEDS: HEPARIN SODIUM,PORCINE 5,000 UNIT/ML 1 ML VIAL SQ SCH ×2 (04:30→11:21)
[2020-01-15 05:06] LABS: Basophils % (A) 0 %; Eosinophils # (A) 0.3 k/uL (0-0.7); Eosinophils % (A) 4 %; HGB 11.4 gm/dL (11.4-16.0); Lymphocytes # (A) 1.9 k/uL (1.0-4.8); Lymphocytes % (A) 25 %; MCH 30.3 pg (25.0-35.0); MCHC 31.7 g/dL (31.0-37.0); MCV 95.4 fL (80.0-100.0); Mean Platelet Volume 9.5; Monocytes # (A) 0.4 k/uL (0-1.0); Monocytes % (A) 6 %; Neutrophils % (A) 65 %; Platelet Count 172 k/uL (150-450); RBC 3.77 m/uL (3.80-5.40); RDW 12.5 % (11.5-15.5); WBC 7.7 k/uL (3.8-10.6)
[2020-01-15 05:37] VITALS: TEMP 98.3
[2020-01-15] MEDS: KETOROLAC 15 MG/ML 1 ML VIAL IVP SCH ×2 (06:08→11:21)
[2020-01-15] MEDS: ACETAMINOPHEN IV (For NPO) 1,000 MG in EMPTY BAG 1 BAG IVPB SCH (06:09)
[2020-01-15] MEDS: LACTATED RINGERS 1,000 ML IV SCH (06:12)
[2020-01-15 07:05] LABS: Glucose,Whole Blood 119 mg/dL (75-99)
[2020-01-15] MEDS: FAMOTIDINE 20 MG TAB PO SCH (08:32)
[2020-01-15] MEDS: lisinopriL 5 MG TAB PO SCH (08:32)
[2020-01-15] MEDS: metFORMIN 500 MG TAB PO SCH (08:32)
[2020-01-15] MEDS: ASPIRIN 81 MG PO SCH (08:32)
[2020-01-15] MEDS: OXYBUTYNIN CHLORIDE 5 MG TAB PO SCH (08:32)
[2020-01-15] MEDS: PIOGLITAZONE 15 MG TAB PO SCH (08:32)
[2020-01-15] MEDS: DOCUSATE 100 MG CAP PO SCH (08:32)
[2020-01-15 11:14] LABS: Glucose,Whole Blood 91 mg/dL (75-99)
[2020-01-15 12:05] VITALS: BP 119/78; PULSE 79; RESP 17
--- NOTE | 2020-01-15 14:22 | P.DS ---
<Alicia Seals - Last Filed: 01/15/20 14:17> Providers Expected date of discharge: 01/15/20 Hospital Course: Discharge diagnosis 1. Repair of recurrent incarcerated incisional hernia with mesh Hospital course This is a 58-year-old female complains of recurrent hernia. Patient had her her nikita fixed at the umbilicus initially 15 years ago. Approximately one year ago patient began experiencing an increasing bulge above the umbilicus. Patient underwent repair of recurrent incarcerated incisional hernia with mesh. She tolerated surgery well. She is currently tolerating a clear liquid diet. She is afebrile. She is up and ambulating. Patient is stable for discharge. Physician Oracle Applications Analyst note has been reviewed by physician. Signing provider agrees with the documented findings, assessment, and plan of care. Patient Condition at Discharge: Stable Plan - Discharge Summary Discharge Rx Participant: No New Discharge Prescriptions: New oxyCODONE HCL [OxyIR] 5 mg PO Q6H PRN 3 Days #6 tab PRN Reason: Breakthrough Pain Docusate [Colace] 100 mg PO BID #30 capsule No Action Simvastatin [Zocor] 40 mg PO HS Omeprazole [PriLOSEC] 20 mg PO DAILY lisinopriL [Zestril] 5 mg PO DAILY Alendronate Sodium [Fosamax] 70 mg PO MO Aspirin [Adult Low Dose Aspirin EC] 81 mg PO DAILY Calcium Carbonate [Calcium] 600 mg PO DAILY Ergocalciferol [Vitamin D2] 50,000 unit PO Q14D metFORMIN HCL [Glucophage] 1,000 mg PO BID Oxybutynin Chloride [Ditropan] 5 mg PO TID Insulin Glargine,Hum.rec.anlog [Lantus Solostar] 20 unit SQ HS rOPINIRole HCL [Requip] 0.5 mg PO HS Pioglitazone [Actos] 15 mg PO DAILY Discharge Medication List Omeprazole [PriLOSEC] 20 mg PO DAILY 04/07/14 [History] Simvastatin [Zocor] 40 mg PO HS 04/07/14 [History] lisinopriL [Zestril] 5 mg PO DAILY 04/07/14 [History] Alendronate Sodium [Fosamax] 70 mg PO MO 11/05/19 [History] Aspirin [Adult Low Dose Aspirin EC] 81 mg PO DAILY 11/05/19 [History] Calcium Carbonate [Calcium] 600 mg PO DAILY 11/05/19 [History] Ergocalciferol [Vitamin D2] 50,000 unit PO Q14D 11/05/19 [History] Oxybutynin Chloride [Ditropan] 5 mg PO TID 11/05/19 [History] metFORMIN HCL [Glucophage] 1,000 mg PO BID 11/05/19 [History] Insulin Glargine,Hum.rec.anlog [Lantus Solostar] 20 unit SQ HS 01/09/20 [History] Pioglitazone [Actos] 15 mg PO DAILY 01/09/20 [History] rOPINIRole HCL [Requip] 0.5 mg PO HS 01/09/20 [History] oxyCODONE HCL [OxyIR] 5 mg PO Q6H PRN 3 Days #6 tab 01/13/20 [Rx] Docusate [Colace] 100 mg PO BID #30 capsule 01/15/20 [Rx] Follow up Appointment(s)/Referral(s): Dharmesh Hughes MD [Medical Doctor] - 01/22/20 1:20 pm [facility], [NON-STAFF] - 1 Week Patient Instructions/Handouts: Laxative, Stool Softeners (By mouth), Oxycodone, Rapid Release (By mouth), Incisional Hernia (DC), Full Liquid Diet (DC) Activity/Diet/Wound Care/Special Instructions: Diet: full liquids today and advance slowly Home care for drain management Okay to remove dressing on Monday No driving while taking oxycodone No lifting over 10 pounds You may shower. No soaking or tub baths for 2 weeks Very light activity until you are reevaluated at your follow up appointment with your surgeon Discharge Disposition: HOME WITH HOME HEALTH SERVICES <Dharmesh Hughes - Last Filed: 01/15/20 18:20> Providers Date of admission: 01/14/20 11:37 Attending physician: Dharmesh Hughes Consults: 01/13/20 15:40 Consult Physician Routine Consulting Provider: Andrey Leong Consult Reason/Comments: med mgmt Do you want consulting provider notified?: Yes Primary care physician: Jacklyn Freitas - Discharge Diagnosis(es) (1) Recurrent incisional hernia with incarceration Status: Acute Hospital Course: As above. Pain is improved. Tolerating diet. No further nausea or vomiting. May discharge.
--- NOTE | 2020-01-15 16:35 | PN ---
PROGRESS NOTE DATE OF SERVICE: 01/15/2020 This 59-year-old woman who was admitted after repair of a recurrent incarcerated incisional hernia is improving significantly. No chest pain. No palpitations. No fever. PHYSICAL EXAMINATION: Alert and oriented x3. Pulse 79, blood pressure 119/78, respirations 17, temperature 98.3, pulse ox 94% on room air. HEENT: Conjunctivae normal. NECK: No jugular venous distention. CARDIOVASCULAR SYSTEM: S1, S2 muffled. RESPIRATORY SYSTEM: Breath sounds diminished at the bases. No rhonchi. No crackles. ABDOMEN: Soft, status post surgery. LEGS: No edema. No swelling. NERVOUS SYSTEM: No focal deficit. LABS: WBC 7.6, hemoglobin 11.5. Accu-Cheks 119, 91. Other labs are noted. ASSESSMENT: 1. Status post repair of recurrent incarcerated incisional hernia with mesh. 2. Increased white count, possibly reactive. 3. Diabetes mellitus, type 2. 4. Gastroesophageal reflux disease. 5. Hypertension. 6. Sleep apnea. 7. History of plantar fasciitis. 8. Overactive bladder history. 9. History of hernia surgery. 10.History of degenerative joint disease. RECOMMENDATIONS AND DISCUSSION: I recommend to continue current medications, continue with the monitoring, symptomatic treatment. Incentive spirometry. DVT prophylaxis. Continue to monitor. Further recommendations to follow. MMODL / IJN: [id number] /
== END 2020-01-15 16:13 | disposition home health service (06) ==
LOC: OR 10:51 → 6NMEDSUR 17:55 → OR 01-14 11:37
PROVIDERS: ADMIT Surgery; ATTEND Surgery
DX: K43.0 Incisional hernia with obstruction, without gangrene (principal); D72.829 Elevated white blood cell count, unspecified; E11.9 Type 2 diabetes mellitus without complications; K21.9 Gastro-esophageal reflux disease without esophagitis; E78.5 Hyperlipidemia, unspecified; I10 Essential (primary) hypertension; G47.30 Sleep apnea, unspecified; N32.81 Overactive bladder; M19.90 Unspecified osteoarthritis, unspecified site; Z87.891 Personal history of nicotine dependence; Z98.890 Other specified postprocedural states; Z82.3 Family history of stroke; Z82.49 Family history of ischemic heart disease and other diseases of the circulatory system; Z79.82 Long term (current) use of aspirin; Z79.83 Long term (current) use of bisphosphonates; Z79.4 Long term (current) use of insulin; Z79.899 Other long term (current) drug therapy
CPT/HCPCS: 80048 ×2; 85025 ×2; 85027; 88302; 49566; 49568; G0378 ×2; C1781; J2250; J1200; J1644 ×3; J1100; J2710; J0690; J2405 ×2; J2001; J3010; J1170 ×3; J0131 ×2; J1885 ×2; J2370; J0330; J2704

== ENCOUNTER → 2020-04-02 | Outpatient (CLI) | payer MEDICARE, OTHER ==
[2020-04-02 20:16] LABS: African American GFR (CKD) 108.4 (60.0-200.0); Albumin 4.4 g/dL (3.80-4.90); Albumin/Globulin Ratio 2.44 (1.60-3.17); Anion Gap 8.1 mmol/L (4.00-12.00); Calcium 9.6 mg/dL (8.7-10.3); Carbon Dioxide 26.9 mmol/L (21.6-31.8); Chol/HDL Ratio 2.95; Globulin 1.8 g/dL (1.6-3.3); LDL Cholesterol,Calculated 92.2 mg/dL (0.0-131.0); Non-African American GFR(CKD) 93.5 (60.0-200.0); Potassium 4.5 mmol/L (3.5-5.5); Total Bilirubin 0.6 mg/dL (0.2-1.2); Total Protein 6.2 g/dL (6.2-8.2); VLDL Calculation 28.8 mg/dL (5.00-40.00)
== END | disposition home or self-care (01) ==
LOC: LABWHC1 09:59
PROVIDERS: ATTEND Internal Medicine Gastroenterology
DX: E11.65 Type 2 diabetes mellitus with hyperglycemia (principal); K76.0 Fatty (change of) liver, not elsewhere classified; Z79.4 Long term (current) use of insulin
CPT/HCPCS: 36415; 80053; 80061

== ENCOUNTER → 2020-04-14 | Outpatient (CLI) | payer MEDICARE, OTHER ==
[2020-04-14 16:53] LABS: African American GFR (CKD) >90 (>60 ml/min/1.73 sqM); Blood Urea Nitrogen 16 mg/dL (7-17); Non-African American GFR(CKD) >90 (>60 ml/min/1.73 sqM)
--- NOTE | 2020-04-14 23:16 | CT ---
EXAMINATION TYPE: CT abdomen pelvis w con DATE OF EXAM: 04/14/2020 HISTORY: rectal bleed CT DLP: 1736.4mGycm Automated Exposure Control for Dose Reduction was Utilized. CONTRAST: CT scan of the abdomen and pelvis is performed with IV Contrast, patient injected with 100 mL of Isov ue 300. COMPARISON: CT abdomen and pelvis December 07, 2016 FINDINGS: LUNG BASES: No significant abnormality is appreciated. LIVER/GB: Liver remains diffusely low dense consistent with diffuse fatty infiltration. Stable promin ent right hepatic lobe. PANCREAS: No significant abnormality is seen. SPLEEN: No significant abnormality is seen. ADRENALS: No significant abnormality is seen. KIDNEYS: No significant abnormality is seen. BOWEL: The oral contrast does not reach level of mid ileal loops making evaluation of distal bowel acosta boptimal. Terminal ileum is thought within normal limits coronal image 45. Stomach poorly distended and suboptimally evaluated. No suspicious small bowel dilatation. Normal-appearing appendix seen from cecum. Areas of mild wall thickening in the transverse and left colon with occasional scattered colo masood diverticula. Mild to moderate wall thickening in the sigmoid rectal colon. UTERUS/ADNEXA: Anteverted uterus. LYMPH NODES: No greater than 1cm abdominal or pelvic lymph nodes are appreciated. OSSEOUS STRUCTURES: Multilevel subtle spondylolisthesis in the lumbar spine with mild disc space narr owing. OTHER: New vertical scar at site of prior [place] umbilical hernia near axial image 69 current stud y. Stable mild calcified plaque of the aorta extends into branch vessels. IMPRESSION: Few scattered colonic diverticula, no CT evidence for acute diverticulitis. Possible mild multifocal uncomplicated acute colitis versus product of poor distention. Differential includes infe ctious and/or inflammatory etiologies.
== END | disposition home or self-care (01) ==
LOC: RADCTMAIN 16:12
PROVIDERS: ATTEND Family Medicine
DX: K57.30 Diverticulosis of large intestine without perforation or abscess without bleeding (principal); K62.5 Hemorrhage of anus and rectum; R10.9 Unspecified abdominal pain
CPT/HCPCS: 82565; 84520; 74177; 36415; Q9967

== ENCOUNTER → 2020-05-19 | Day surgery (SDC) | payer MEDICARE, OTHER ==
[2020-05-15 10:53] VITALS: BMI 38.7
[~2020-05-19] MED LIST changes: -ACETAMINOPHEN TAB 500 MG TAB PO ONE; -DEXAMETHASONE SOD PHOSPHATE 10 MG/ML 1 ML VIAL IV ONE; -HEPARIN SODIUM,PORCINE 5,000 UNIT/ML 1 ML VIAL SQ ONE; +LACTATED RINGERS 1,000 ML IV SCH; +LIDOCAINE 1% (10MG/ML) FOR IV START INTRADERMA PRN; +MIDAZOLAM 2 MG/2 ML VIAL IV PRN; -ONDANSETRON 4 MG/2 ML VIAL IVP ONE; +ONDANSETRON 4 MG/2 ML VIAL ONE; +PROPOFOL 10 MG/ML 20 ML VIAL IV ONE
[2020-05-19 08:39] VITALS: RESP 16; TEMP 97
[2020-05-19 08:39] LABS: Glucose,Whole Blood 121 mg/dL (75-99)
--- NOTE | 2020-05-19 09:34 | P.PCN ---
Date of Procedure: 05/19/20 Procedure(s) Performed: PREOPERATIVE DIAGNOSIS: GERD, rectal bleeding POSTOPERATIVE DIAGNOSIS: Gastritis, gastric polyp, transverse colon polyp, hemorrhoids PROCEDURE: 1. EGD with biopsy and snare polypectomy 2. Colonoscopy with snare polypectomy ANESTHESIA: MAC SURGEON: Dharmesh Hughes M.D. SPECIMENS: Of gastric polyp, antrum, transverse colon polyp ENDOSCOPIC PROCEDURE: The patient was on the endoscopy table in the left decubitus position. The Olympus gastroscope was inserted into the oropharynx an d passed under direct visualization to the region of the third portion of the duodenum. From that point the scope was slowly withdrawn inspecting all surfaces carefully. There were no neoplastic inflammatory or polypoid lesions throughout the duodenum. The pylorus was widely patent. The stomach was carefully inspected. There was a 8 mm pedunculated polyp in the antrum. This was removed using the snare with cautery technique. There was also mild gastritis present. A biopsy of the antrum took place to rule out H. pylori. Retroflexion revealed a normal hiatus. The esophagus was then carefully examined. There were no neoplastic inflammatory or polypoid lesions throughout the visualized esophagus. The patient was kept on the endoscopy table in the left decubitus position. The Olympus colonoscope was inserted into the anus and passed under direct visualization to the base of the cecum. The appendiceal orifice was visualized. From that point the scope was slowly withdrawn inspecting all surfaces carefully. There were no neoplastic inflammatory or polypoid lesions throughout the cecum and ascending colon. In the transverse colon a small polyp was removed using snare with cautery technique. The remainder of the transverse descending sigmoid and rectum appeared normal. There was no visible diverticulosis. At the anus there was noted be external and internal hemorr hoids without any evidence of recent or active bleeding. The patient was taken to the recovery room in stable condition per anesthesia guidelines. RECOMMENDATIONS: Await biopsy results. Resume diet.
[2020-05-19 10:04] VITALS: BP 126/79; PULSE 75
== END ==
LOC: ORWHC2ENDO 08:03
PROVIDERS: ATTEND Surgery
DX: D12.3 Benign neoplasm of transverse colon (principal); K29.50 Unspecified chronic gastritis without bleeding; K31.7 Polyp of stomach and duodenum; K64.8 Other hemorrhoids; K62.5 Hemorrhage of anus and rectum; K64.4 Residual hemorrhoidal skin tags; K21.9 Gastro-esophageal reflux disease without esophagitis; E11.9 Type 2 diabetes mellitus without complications; I10 Essential (primary) hypertension; E78.5 Hyperlipidemia, unspecified; G47.33 Obstructive sleep apnea (adult) (pediatric); Z99.89 Dependence on other enabling machines and devices; N32.81 Overactive bladder; Z98.51 Tubal ligation status; Z98.890 Other specified postprocedural states; Z82.3 Family history of stroke; Z82.49 Family history of ischemic heart disease and other diseases of the circulatory system; Z81.1 Family history of alcohol abuse and dependence; Z87.891 Personal history of nicotine dependence; Z79.84 Long term (current) use of oral hypoglycemic drugs; Z79.83 Long term (current) use of bisphosphonates; Z79.899 Other long term (current) drug therapy
CPT/HCPCS: 88305; 45385; 43239; 43251; J2405; J2704

== ENCOUNTER 2020-07-23 16:21 | Emergency (ER) | payer MEDICARE, OTHER ==
[2020-07-23 16:44] VITALS: RESP 18
[2020-07-23] MEDS ORDERED: ACETAMINOPHEN TAB 500 MG TAB PO STA (20:08)
[2020-07-23] MEDS ORDERED: IBUPROFEN 600 MG TAB PO STA (20:08)
--- NOTE | 2020-07-23 20:27 | XR ---
EXAMINATION TYPE: XR chest 2V DATE OF EXAM: 07/23/2020 COMPARISON: 05/11/2014. HISTORY: Cough and fever. TECHNIQUE: Frontal and lateral views of the chest are obtained. FINDINGS: There is no focal air space opacity, pleural effusion, or pneumothorax seen. The cardiac silhouette size is within normal limits. The osseous structures are intact. IMPRESSION: No acute cardiopulmonary process.
--- NOTE | 2020-07-23 20:54 | ED ---
General Adult HPI - General Chief complaint: Fever Stated complaint: COVID+ Time Seen by Provider: 07/23/20 20:00 Source: patient, RN notes reviewed, old records reviewed Mode of arrival: ambulatory Limitations: no limitations - History of Present Illness Initial comments: This is a 59-year-old female who presents emergency department with exposure to cold. Her primary medical care doctor did a rapid test until she was positive for COVID patient states she started having symptoms 2 days ago. Patient also is a diabetic and overweight so she does qualify for the monoclonal antibodies in the primary medical care doctor would like us to give him to her if she qualifies and if she feels good to go home. Patient states she's not having shortness of breath or cough. Patient states she has a very mild headache because she has a fever. Patient denies any chest pain or palpitations per patient denies abdominal pain patient denies nausea vomiting diarrhea. Patient denies any loss of taste or smell. - Related Data Home Medications Medication Instructions Recorded Confirmed Omeprazole [PriLOSEC] 20 mg PO DAILY 04/07/14 05/19/20 Simvastatin [Zocor] 40 mg PO HS 04/07/14 05/19/20 lisinopriL [Zestril] 5 mg PO DAILY 04/07/14 05/19/20 Alendronate Sodium [Fosamax] 70 mg PO MO 11/05/19 05/19/20 Aspirin [Adult Low Dose Aspirin EC] 81 mg PO DAILY 11/05/19 05/19/20 Calcium Carbonate [Calcium] 600 mg PO DAILY 11/05/19 05/19/20 Ergocalciferol [Vitamin D2] 50,000 unit PO Q14D 11/05/19 05/19/20 Oxybutynin Chloride [Ditropan] 5 mg PO TID 11/05/19 05/19/20 metFORMIN HCL [Glucophage] 1,000 mg PO BID 11/05/19 05/19/20 Insulin Glargine,Hum.rec.anlog 10 unit SQ Q2D 01/09/20 05/19/20 [Lantus Solostar] Pioglitazone [Actos] 15 mg PO DAILY 01/09/20 05/19/20 rOPINIRole HCL [Requip] 0.5 mg PO HS 01/09/20 05/19/20 Previous Rx's Medication Instructions Recorded oxyCODONE HCL [OxyIR] 5 mg PO Q6H PRN 3 Days #6 tab 01/13/20 Allergies Allergy/AdvReac Type Severity Reaction Status Date / Time No Known Allergies Allergy Verified 07/23/20 16:43 Review of Systems ROS Statement: Those systems with pertinent positive or pertinent negative responses have been documented in the HPI. ROS Other: All systems not noted in ROS Statement are negative. Past Medical History Past Medical History: Diabetes Mellitus, GERD/Reflux, Hyperlipidemia, Hypertension, Sleep Apnea/CPAP/BIPAP Additional Past Medical History / Comment(s): hx plantar fasciitis, overactive bladder, History of Any Multi-Drug Resistant Organisms: None Reported Past Surgical History: Hernia Repair, Orthopedic Surgery, Tubal Ligation Additional Past Surgical History / Comment(s): rt knee arthroscopy, kathryn carpal tunnel, kathryn plantar fasciitis surgery,COLONOSCOPY Past Anesthesia/Blood Transfusion Reactions: Postoperative Nausea & Vomiting (PONV) Past Psychological History: No Psychological Hx Reported Smoking Status: Former smoker Past Alcohol Use History: Occasional Past Drug Use History: None Reported - Past Family History Mother Family Medical History: CVA/TIA, Deep Vein Thrombosis (DVT) Brother(s) Family Medical History: CVA/TIA, Hypertension Father Family Medical History: Hypertension General Exam - General Exam Comments Initial Comments: GENERAL: Patient is well-developed and well-nourished. Patient is nontoxic and well-hydrated and is in no acute distress. ENT: Neck is soft and supple. No significant lymphadenopathy is noted. Oropharynx is clear. Moist mucous membranes. Neck has full range of motion without eliciting any pain. EYES: The sclera were anicteric and conjunctiva were pink and moist. Extraocular movements were intact and pupils were equal round and reactive to light. Eyelids were unremarkable. PULMONARY: Unlabored respirations. Good breath sounds bilaterally. No audible rales rhonchi or wheezing was noted. CARDIOVASCULAR: There is a regular rate and rhythm without any murmurs gallops or rubs. ABDOMEN: Soft and nontender with normal bowel sounds. SKIN: Skin is clear with no lesions or rashes and otherwise unremarkable. NEUROLOGIC: Patient is alert and oriented x3. Cranial nerves II through XII are grossly intact. Motor and sensory are also intact. Normal speech, volume and content. Symmetrical smile. MUSCULOSKELETAL: Normal extremities with adequate strength and full range of motion. LYMPHATICS: No significant lymphadenopathy is noted PSYCHIATRIC: Normal psychiatric evaluation. Limitations: no limitations Course Vital Signs 07/23/20 07/23/20 16:40 21:08 Temperature 102.9 F H Pulse Rate 111 H Respiratory 18 18 Rate Blood Pressure 131/77 O2 Sat by Pulse 98 Oximetry Medical Decision Making - Medical Decision Making chest x-ray looks normal. Patient will get monoclonal antibodies if she has a positive COVID test. Disposition Clinical Impression: Fever, COVID-19 Disposition: HOME SELF-CARE Instructions (If sedation given, give patient instructions): Coronavirus Disease 2019 (COVID-19) Is patient prescribed a controlled substance at d/c from ED?: No Referrals: Jacklyn Freitas MD [Primary Care Provider] - 1-2 days Time of Disposition: 21:11
[2020-07-23] MEDS ORDERED: BAMLANIVIMAB 700 MG in SODIUM CHLORIDE 0.9% 50 ML IVPB ONE (21:45)
[2020-07-23 22:08] VITALS: BP 110/64; PULSE 82; TEMP 98.7
== END 2020-07-23 23:40 | disposition home or self-care (01) ==
LOC: EC 16:21
DX: U07.1 COVID-19 (principal); E11.9 Type 2 diabetes mellitus without complications; K21.9 Gastro-esophageal reflux disease without esophagitis; E78.5 Hyperlipidemia, unspecified; I10 Essential (primary) hypertension; F17.200 Nicotine dependence, unspecified, uncomplicated; Z79.84 Long term (current) use of oral hypoglycemic drugs; Z79.899 Other long term (current) drug therapy; Z79.82 Long term (current) use of aspirin
CPT/HCPCS: 87635; 71046; 99283; 96374; Q0239; 99284

== ENCOUNTER → 2020-09-21 | Outpatient (CLI) | payer MEDICARE, OTHER ==
[2020-09-21 14:42] LABS: African American GFR (CKD) 121.1 (60.0-200.0); Albumin 4.4 g/dL (3.80-4.90); Anion Gap 8.8 mmol/L (4.00-12.00); Calcium 8.9 mg/dL (8.7-10.3); Carbon Dioxide 24.2 mmol/L (21.6-31.8); Globulin 2.2 g/dL (1.6-3.3); LDL Cholesterol,Calculated 76.8 mg/dL (0.0-131.0); Non-African American GFR(CKD) 104.5 (60.0-200.0); Total Bilirubin 0.3 mg/dL (0.2-1.2); Total Protein 6.6 g/dL (6.2-8.2); Uric Acid 5.1 mg/dL (2.9-7.7); VLDL Calculation 37.2 mg/dL (5.00-40.00)
[2020-09-21 14:44] LABS: Basophils # (A) 0.05 X 10*3/uL (0.00-0.10); Basophils % (A) 0.6 %; Eosinophils # (A) 0.14 X 10*3/uL (0.04-0.35); Eosinophils % (A) 1.7 %; HCT 40.9 % (37.2-46.3); HGB 13.2 g/dL (12.0-15.0); Lymphocytes # (A) 2.36 X 10*3/uL (0.90-5.00); Lymphocytes % (A) 28.8 %; MCH 30.1 pg (27.0-32.0); MCHC 32.3 g/dL (32.0-37.0); MCV 93.4 fL (80.0-97.0); Mean Platelet Volume 12.2 fL (9.5-12.2); Monocytes # (A) 0.58 X 10*3/uL (0.20-1.00); Monocytes % (A) 7.1 %; Neutrophils # (A) 5.05 X 10*3/uL (1.80-7.70); Neutrophils % (A) 61.6 %; Platelet Count 193 X 10*3/uL (140-440); RBC 4.38 X 10*6/uL (4.10-5.20); RDW 13.7 % (11.5-14.5)
[2020-09-21 15:06] LABS: Folate, Serum 14.7 ng/mL
== END | disposition home or self-care (01) ==
LOC: LABWHC1 09:25
PROVIDERS: ATTEND Family Medicine
DX: I10 Essential (primary) hypertension (principal); E11.65 Type 2 diabetes mellitus with hyperglycemia; E78.2 Mixed hyperlipidemia; G47.30 Sleep apnea, unspecified; Z79.4 Long term (current) use of insulin
CPT/HCPCS: 36415; 80053; 80061; 82306; 82607; 82746; 84443; 84550; 85025

== ENCOUNTER → 2021-07-29 | Outpatient (CLI) | payer MEDICARE, OTHER ==
[2021-07-29 14:57] LABS: Basophils # (A) 0.04 X 10*3/uL (0.00-0.10); Basophils % (A) 0.6 %; Eosinophils # (A) 0.09 X 10*3/uL (0.04-0.35); Eosinophils % (A) 1.3 %; HCT 39.2 % (37.2-46.3); HGB 12.5 g/dL (12.0-15.0); Immature Grans, Automated 0.3 %; Lymphocytes # (A) 2.58 X 10*3/uL (0.90-5.00); MCH 29.9 pg (27.0-32.0); MCHC 31.9 g/dL (32.0-37.0); MCV 93.8 fL (80.0-97.0); Monocytes # (A) 0.45 X 10*3/uL (0.20-1.00); Monocytes % (A) 6.6 %; NRBC Per 100 WBC 0 /100 WBCS (0.0-0.0); Neutrophils # (A) 3.61 X 10*3/uL (1.80-7.70); Neutrophils % (A) 53.2 %; Platelet Count 187 X 10*3/uL (140-440); RBC 4.18 X 10*6/uL (4.10-5.20); RDW 13.2 % (11.5-14.5); WBC 6.79 X 10*3/uL (4.50-10.00)
[2021-07-29 16:33] LABS: ALT 45 U/L (8-44); AST 35 U/L (13-35); African American GFR (CKD) 107.6 (60.0-200.0); Albumin 4.3 g/dL (3.8-4.9); Albumin/Globulin Ratio 1.95 (1.60-3.17); Alkaline Phosphatase 81 U/L (41-126); BUN/Creat Ratio 15.71 Ratio (12.00-20.00); Calcium 9.4 mg/dL (8.7-10.3); Carbon Dioxide 19.9 mmol/L (20.0-27.5); Chloride 105 mmol/L (96-109); Chol/HDL Ratio 3.34 Ratio; Globulin 2.2 g/dL (1.6-3.3); Glucose 106 mg/dL (70-110); Magnesium 1.9 mg/dL (1.5-2.4); Non-African American GFR(CKD) 92.9 (60.0-200.0); Potassium 4.4 mmol/L (3.5-5.5); Sodium 140 mmol/L (135-145); Total Protein 6.5 g/dL (6.2-8.2); Uric Acid 4.2 mg/dL (2.9-7.7)
== END | disposition home or self-care (01) ==
LOC: LABWHC1 09:47
PROVIDERS: ATTEND Family Medicine
DX: Z12.31 Encounter for screening mammogram for malignant neoplasm of breast (principal); E78.2 Mixed hyperlipidemia; E11.65 Type 2 diabetes mellitus with hyperglycemia; I10 Essential (primary) hypertension; E55.9 Vitamin D deficiency, unspecified
CPT/HCPCS: 36415; 80053; 80061; 82306; 82607; 82746; 83735; 84443; 84550; 85025

== ENCOUNTER → 2021-08-19 | Outpatient (CLI) | payer MEDICARE, OTHER ==
[2021-08-19 18:37] LABS: African American GFR (CKD) 97.9 (60.0-200.0); Albumin 4.4 g/dL (3.8-4.9); Albumin/Globulin Ratio 1.9 (1.60-3.17); Anion Gap 12.4 mmol/L (10.00-18.00); BUN/Creat Ratio 25.5 Ratio (12.00-20.00); Blood Urea Nitrogen 19.3 mg/dL (9.0-27.0); Calcium 9.8 mg/dL (8.7-10.3); Carbon Dioxide 24.2 mmol/L (20.0-27.5); Globulin 2.3 g/dL (1.6-3.3); Non-African American GFR(CKD) 84.5 (60.0-200.0); Potassium 4.8 mmol/L (3.5-5.5); Total Bilirubin 0.3 mg/dL (0.30-1.20); Total Protein 6.7 g/dL (6.2-8.2)
== END | disposition home or self-care (01) ==
LOC: LABWHC1 10:32
PROVIDERS: ATTEND Internal Medicine Gastroenterology
DX: K76.0 Fatty (change of) liver, not elsewhere classified (principal)
CPT/HCPCS: 36415; 80053

== ENCOUNTER → 2023-03-15 | Outpatient (CLI) | payer MEDICARE, OTHER ==
[2023-03-15 16:48] LABS: ALT 13 U/L (8-44); AST 18 U/L (13-35); Albumin 4.5 g/dL (3.8-4.9); Albumin/Globulin Ratio 2.05 Ratio (1.60-3.17); Alkaline Phosphatase 87 U/L (41-126); Blood Urea Nitrogen 12.3 mg/dL (9.0-27.0); Calcium 9.9 mg/dL (8.7-10.3); Carbon Dioxide 23.6 mmol/L (21.6-31.8); Chloride 105 mmol/L (96-109); Globulin 2.2 g/dL (1.6-3.3); Glucose 93 mg/dL (70-110); LDL Cholesterol,Calculated 99.8 mg/dL (0.0-131.0); Potassium 4.6 mmol/L (3.5-5.5); Sodium 142 mmol/L (135-145); Total Bilirubin 0.3 mg/dL (0.3-1.2); Total Protein 6.7 g/dL (6.2-8.2); Uric Acid 3.4 mg/dL (2.9-7.7)
== END | disposition home or self-care (01) ==
LOC: LABWHC1 10:22
PROVIDERS: ATTEND Family Medicine
DX: I10 Essential (primary) hypertension (principal); E11.65 Type 2 diabetes mellitus with hyperglycemia; E55.9 Vitamin D deficiency, unspecified; E78.2 Mixed hyperlipidemia
CPT/HCPCS: 36415; 80053; 80061; 82306; 82607; 82746; 83036; 84550

== ENCOUNTER → 2023-10-23 | Outpatient (CLI) | payer MEDICARE ==
--- NOTE | 2023-10-23 12:01 | XR ---
EXAMINATION TYPE: XR ribs RT w pa chest xray DATE OF EXAM: 10/23/2023 COMPARISON: NONE HISTORY: Pain TECHNIQUE: Single view of the chest right views of the ribs are submitted. FINDINGS: The lungs are clear. No Evidence for pneumothorax. No evidence for focal contusion. Medi astinal structures are midline. Evaluation of the ribs fails to demonstrate evidence for acute displ aced rib fracture or secondary sign of rib fracture. There appears to be a healed rib fracture of rig ht rib 7. IMPRESSION: No acute right-sided rib fracture identified.
== END | disposition home or self-care (01) ==
LOC: RADXRMAIN 10:49
PROVIDERS: ATTEND Family Medicine
DX: R07.81 Pleurodynia (principal)

== ENCOUNTER 2023-11-15 07:34 | Emergency (ER) | payer MEDICARE ==
[2023-11-15 07:38] VITALS: RESP 18
--- NOTE | 2023-11-15 08:05 | ED ---
General Adult HPI - General Chief complaint: Back Pain/Injury Stated complaint: Back pain Time Seen by Provider: 11/15/23 07:41 Source: patient, RN notes reviewed Mode of arrival: ambulatory Limitations: no limitations - History of Present Illness Initial comments: 62-year-old female presents emergency department with chief complaint of back pain. Patient states she lost her balance falling backwards on Monday. Patient states that she only has low back pain. Patient denies any bowel, bladder and cons retention no head injury. Patient states she still having low back pain that is nonradiating. She took some Motrin yesterday with mild relief. She denies any abdominal complaints no other associated symptoms - Related Data Home Medications Medication Instructions Recorded Confirmed Omeprazole [PriLOSEC] 20 mg PO DAILY 04/07/14 05/19/20 Simvastatin [Zocor] 40 mg PO HS 04/07/14 05/19/20 lisinopriL [Zestril] 5 mg PO DAILY 04/07/14 05/19/20 Alendronate Sodium [Fosamax] 70 mg PO MO 11/05/19 05/19/20 Aspirin [Adult Low Dose Aspirin EC] 81 mg PO DAILY 11/05/19 05/19/20 Calcium Carbonate [Calcium] 600 mg PO DAILY 11/05/19 05/19/20 Ergocalciferol [Vitamin D2] 50,000 unit PO Q14D 11/05/19 05/19/20 metFORMIN HCL [Glucophage] 1,000 mg PO BID 11/05/19 05/19/20 oxyBUTYnin chloride [Ditropan] 5 mg PO TID 11/05/19 05/19/20 Insulin Glargine,Hum.rec.anlog 10 unit SQ Q2D 01/09/20 05/19/20 [Lantus Solostar] Pioglitazone [Actos] 15 mg PO DAILY 01/09/20 05/19/20 rOPINIRole HCL [Requip] 0.5 mg PO HS 01/09/20 05/19/20 Previous Rx's Medication Instructions Recorded oxyCODONE HCL [OxyIR] 5 mg PO Q6H PRN 3 Days #6 tab 01/13/20 HYDROcodone/APAP 10-325MG [Gary 1 tab PO Q6HR PRN 3 Days #12 tab 11/15/23 10-325] Allergies Allergy/AdvReac Type Severity Reaction Status Date / Time No Known Allergies Allergy Verified 11/15/23 07:38 Review of Systems ROS Statement: Those systems with pertinent positive or pertinent negative responses have been documented in the HPI. ROS Other: All systems not noted in ROS Statement are negative. Past Medical History Past Medical History: Diabetes Mellitus, GERD/Reflux, Hyperlipidemia, Hypertension, Sleep Apnea/CPAP/BIPAP Additional Past Medical History / Comment(s): hx plantar fasciitis, overactive bladder, History of Any Multi-Drug Resistant Organisms: None Reported Past Surgical History: Hernia Repair, Orthopedic Surgery, Tubal Ligation Additional Past Surgical History / Comment(s): rt knee arthroscopy, kathryn carpal tunnel, kathryn plantar fasciitis surgery,COLONOSCOPY Past Anesthesia/Blood Transfusion Reactions: Postoperative Nausea & Vomiting (PONV) Past Psychological History: No Psychological Hx Reported Smoking Status: Light tobacco smoker Past Alcohol Use History: Occasional Past Drug Use History: None Reported - Past Family History Mother Family Medical History: CVA/TIA, Deep Vein Thrombosis (DVT) Brother(s) Family Medical History: CVA/TIA, Hypertension Father Family Medical History: Hypertension General Exam Limitations: no limitations General appearance: alert, in no apparent distress Head exam: Present: atraumatic, normocephalic, normal inspection Eye exam: Present: normal appearance, PERRL, EOMI. Absent: scleral icterus, conjunctival injection, periorbital swelling ENT exam: Present: normal exam, mucous membranes moist Neck exam: Present: normal inspection, full ROM. Absent: tenderness, meningismus, lymphadenopathy Respiratory exam: Present: normal lung sounds bilaterally. Absent: respiratory distress, wheezes, rales, rhonchi, stridor Cardiovascular Exam: Present: regular rate, normal rhythm, normal heart sounds. Absent: systolic murmur, diastolic murmur, rubs, gallop, clicks GI/Abdominal exam: Present: soft, normal bowel sounds. Absent: distended, tenderness, guarding, rebound, rigid Back exam: Present: full ROM, tenderness (Lumbar diffuse tenderness), paraspinal tenderness, vertebral tenderness Neurological exam: Present: alert, oriented X3, CN II-XII intact, reflexes normal. Absent: motor sensory deficit Course Vital Signs 11/15/23 11/15/23 07:36 10:52 Temperature 97.8 F 97.9 F Pulse Rate 92 86 Respiratory 18 18 Rate Blood Pressure 114/74 118/76 O2 Sat by Pulse 99 99 Oximetry Medical Decision Making - Medical Decision Making Was pt. sent in by a medical professional or institution (DARCIE Huerta, ARCHEOLOGIST, urgent care, hospital, or care home...) When possible be specific @ -No Did you speak to anyone other than the patient for history (EMS, parent, family, police, friend...)? What history was obtained from this source @ -No Did you review nursing and triage notes (agree or disagree)? Why? @ -I reviewed and agree with nursing and triage notes Were old charts reviewed (outside hosp., previous admission, EMS record, old EKG, old radiological studies, urgent care reports/EKG's, care home records)? Report findings @ -No old charts were reviewed Differential Diagnosis (chest pain, altered mental status, abdominal pain women, abdominal pain men, vaginal bleeding, weakness, fever, dyspnea, syncope, headache, dizziness, GI bleed, back pain, seizure, CVA, palpatations, mental health, musculoskeletal)? @ -Differential Back Pain: Strain, zoster, cauda equina syndrome, epidural abscess, vertebral osteomyelitis, discitis, fracture, subluxation, disc herniation, DJD, spinal stenosis, dissection, AAA, pancreatitis, peptic ulcer disease, pyelonephritis, kidney stone, this is not meant to be an all-inclusive list. EKG interpreted by me (3pts min.). @ -None X-rays interpreted by me (1pt min.). @ -X lumbar spine showing compression fracture L2 CT interpreted by me (1pt min.). @ -ct lumbar spine showing 17% loss of L2, L2 compression fracture no retropulsion U/S interpreted by me (1pt. min.). @ -None done What testing was considered but not performed or refused? (CT, X-rays, U/S, labs)? Why? @ -None What meds were considered but not given or refused? Why? @ -None Did you discuss the management of the patient with other professionals (professionals i.e. DARCIE Huerta, ARCHEOLOGIST, lab, RT, psych nurse, social group worker, office administrative assistant, teacher, president and chief commercial officer, spring encaser)? Give summary @ -No Was smoking cessation discussed for >3mins.? @ -No Was critical care preformed (if so, how long)? @ -No Were there social determinants of health that impacted care today? How? (Homelessness, low income, unemployed, alcoholism, drug addiction, transportation, low edu. Level, literacy, decrease access to med. care, [facility], rehab)? @ -No Was there de-escalation of care discussed even if they declined (Discuss DNR or withdrawal of care, Hospice)? DNR status @ -No What co-morbidities impacted this encounter? (DM, HTN, Smoking, COPD, CAD, Cancer, CVA, ARF, Chemo, Hep., AIDS, mental health diagnosis, sleep apnea, morbid obesity)? @ -None Was patient admitted / discharged? Hospital course, mention meds given and route, prescriptions, significant lab abnormalities, going to OR and other pertinent info. @ -Discharged patient has minimally displaced compression fracture, patient is logically intact. Patient advised to follow-up with orthopedics patient is advised that she has had no lifting twisting bending excessive movements until she follows up with orthopedics. Undiagnosed new problem with uncertain prognosis? @ -No Drug Therapy requiring intensive monitoring for toxicity (Heparin, Nitro, Insulin, Cardizem)? @ -No Were any procedures done? @ -No Diagnosis/symptom? @Lumbar compression fracture Acute, or Chronic, or Acute on Chronic? @Acute Uncomplicated (without systemic symptoms) or Complicated (systemic symptoms)? @ -Uncomplicated Side effects of treatment? @ -No Exacerbation, Progression, or Severe Exacerbation? @ -No Poses a threat to life or bodily function? How? (Chest pain, [place], [place], pneumonia, PE, COPD, DKA, ARF, appy, cholecystitis, CVA, Diverticulitis, Homicidal, Suicidal, threat to staff... and all critical care pts) @ -No Disposition Clinical Impression: Lumbar compression fracture Disposition: HOME SELF-CARE Condition: Stable Instructions (If sedation given, give patient instructions): Vertebral Compression Fracture (ED) Additional Instructions: Please return to the Emergency Department if symptoms worsen or any other concerns. Prescriptions: HYDROcodone/APAP 10-325MG [Gary 10-325] 1 tab PO Q6HR PRN 3 Days #12 tab PRN Reason: pain Is patient prescribed a controlled substance at d/c from ED?: Yes When asked, does pt state using other controlled substances?: No If opioid is for acute pain is fill amount 7 days or less?: Yes If Rx opioid, was Start Talking consent form obtained?: Yes Referrals: Jacklyn Freitas MD [Primary Care Provider] - 1-2 days Peewee Kemp DO [Doctor of Osteopathic Medicine] - 1-2 days Time of Disposition: 10:08
[2023-11-15] MEDS: ORPHENADRINE 30 MG/ML 2 ML VIAL IM STA (08:16)
[2023-11-15] MEDS: KETOROLAC 15 MG/ML 1 ML VIAL IM STA (08:16)
--- NOTE | 2023-11-15 09:34 | XR ---
EXAMINATION TYPE: XR lumbar spine 2 or 3V DATE OF EXAM: 11/15/2023 COMPARISON: CT abdomen pelvis 04/14/2020, right RIBS 10/23/2023 HISTORY: Fall, pain TECHNIQUE: 3 view lumbar spine FINDINGS: There is a superior endplate compression deformity of L2 with approximately 15% loss of ant erior vertebral body height. This is new from 2019 and 10/23/2023. Alignment is preserved. Some posterior disc space narrowing is present L5-S1 with mild diffuse disc s pace narrowing L4-5. IMPRESSION: 1. New compression deformity superior endplate L2.
--- NOTE | 2023-11-15 09:53 | CT ---
EXAMINATION TYPE: CT lumbar spine wo con DATE OF EXAM: 11/15/2023 COMPARISON: Plain films same date HISTORY: lower back pain from fall x [address] DLP: 1281.6 mGycm CONTRAST: None TECHNIQUE: CT of the lumbar spine is performed on a spiral scan at 3 mm thick sections. Reconstructed images are performed in the coronal and sagittal planes. FINDINGS: There is a superior endplate compression of deformity of L2. This begins in the central por tion in the extends anteriorly. There is a calculated 17% anterior vertebral body height loss. No pos terior wall displacement is evident. No spinal canal stenosis or neural foraminal stenosis present. T12-L1: No focal disc herniation or significant disc bulge is evident. No spinal canal stenosis or neural foraminal stenosis is present. L1-L2: No focal disc herniation or significant disc bulge is evident. No spinal canal stenosis or n eural foraminal stenosis is present L2-L3: Mild disc bulge is present with anterior thecal sac flattening. No AP spinal canal stenosis pr esent. Neural foramen are patent. L3-L4: No focal disc herniation or significant disc bulge is evident. No spinal canal stenosis or n eural foraminal stenosis is present L4-L5: Mild disc bulge is present with anterior thecal sac flattening. No AP spinal canal stenosis. N eural foramen are patent. L5-S1: No focal disc herniation or significant disc bulge is evident. No spinal canal stenosis or n eural foraminal stenosis is present Vertebral alignment appears normal. IMPRESSION: 1. Acute superior endplate compression deformity of L2. No spinal canal stenosis or posterior wall di splacement evident.
[2023-11-15 10:56] VITALS: BP 118/76; PULSE 86; TEMP 97.9
== END 2023-11-15 10:56 | disposition home or self-care (01) ==
LOC: EC 07:34
DX: S32.020A Wedge compression fracture of second lumbar vertebra, initial encounter for closed fracture (principal); F17.200 Nicotine dependence, unspecified, uncomplicated; W19.XXXA Unspecified fall, initial encounter
CPT/HCPCS: 72100; 72131; 99284; 96372 ×2; J2360; J1885

== ENCOUNTER → 2024-10-16 | Outpatient (CLI) | payer MEDICARE ==
--- NOTE | 2024-10-16 15:06 | MM ---
Reason for Exam: Screening (asymptomatic). Last mammogram was performed 6 year(s) and 11 month(s) ago. Patient History: Menarche at age 11. Patient has no children. Postmenopausal. Risk Values: Savanna 5 year model risk: 1.2%. NCI Lifetime model risk: 4.8%. Prior Study Comparison: 10/29/2015 Screening Mammogram, [facility]. 11/14/2016 Bilateral Screening Mammogram, [facility]. 11/24/2017 Bilateral Screening Mammogram, [facility]. Tissue Density: There are scattered areas of fibroglandular density. Findings: Analyzed By CAD. Asymmetric density superior right MLO view is unchanged. There is no suspicious group of microcalcifications or new suspicious mass in either breast. Overall Assessment: Benign, BI-RAD 2 Management: Screening Mammogram of both breasts in 1 year. Patient should continue monthly self-breast exams. A clinical breast exam by your physician is recommended on an annual basis. This exam should not preclude additional follow-up of suspicious palpable abnormalities. Note on Savanna scores and lifetime risk: 1. A Savanna score greater than 3% is considered moderate risk. If this is the case, consider specialist referral to assess eligibility for a risk reducing agent. 2. If overall lifetime risk for the development of breast cancer is 20% or higher, the patient may qualify for future screening with alternating mammogram and breast MRI. [facility], , 10/16/2024 3:03 PM. Electronically signed and approved by: Katy Prater M.D. Radiologist
== END | disposition home or self-care (01) ==
LOC: RADMAMWWP 11:23
PROVIDERS: ATTEND Family Medicine
DX: Z12.31 Encounter for screening mammogram for malignant neoplasm of breast (principal); R92.323 Mammographic fibroglandular density, bilateral breasts; Z78.0 Asymptomatic menopausal state
CPT/HCPCS: 77063; 77067